=== PATIENT | female | born 1980 | race American Indian/Alaskan Native ===

== ENCOUNTER 2020-11-06 17:40 | Outpatient (CLI) | payer OTHER ==
[2020-11-06 18:07] VITALS: BP 121/58
[2020-11-06] MEDS ORDERED: LACTATED RINGERS 1,000 ML IV SCH (18:15)
[2020-11-06 18:39] LABS: Bilirubin,Urine NEG (Negative); Blood,Urine NEG (Negative); Color,Urine Yellow (Yellow); Mucus,Urine FEW /HPF; Protein,Urine <15 mg/dL mg/dL (Negative); WBC,Urine < 1.0 /HPF (0.0-6.0)
[2020-11-06 18:46] LABS: Amphetamine Screen,Urine Negative; Benzodiazepines Screen,Urine Negative; Cannabinoid Screen,Urine Negative; Cocaine Screen,Urine Negative; Methadone Screen,Urine Negative; Opiate Screen,Urine Negative
== END 2020-11-06 20:00 | disposition home or self-care (01) ==
LOC: TRG 17:40 → APU 17:41 → TRG 20:00
PROVIDERS: ATTEND Obstetrics & Gynecology
DX: O26.892 Other specified pregnancy related conditions, second trimester (principal); M54.5 Low back pain; Z3A.29 29 weeks gestation of pregnancy
CPT/HCPCS: 80307; 81001